=== PATIENT | male | born 1960 | race Two or more races ===

== ENCOUNTER → 2019-08-03 12:28 | Outpatient (CLI) | payer OTHER | END | disposition home or self-care (01) | LOC: LAB 12:28 | DX: J11.1 Influenza due to unidentified influenza virus with other respiratory manifestations (principal) ==

== ENCOUNTER → 2019-08-03 | Outpatient (CLI) | payer OTHER | END | disposition home or self-care (01) | LOC: RAD 12:18 | DX: R05 Cough (principal) ==

== ENCOUNTER 2019-08-04 12:10 | Outpatient (CLI) | payer OTHER | END 2019-08-04 12:18 | disposition home or self-care (01) | LOC: SONOGRAMA 12:10 | DX: N18.3 Chronic kidney disease, stage 3 (moderate) (principal); E11.22 Type 2 diabetes mellitus with diabetic chronic kidney disease ==